=== PATIENT | male | born 1940 ===

== ENCOUNTER 2022-04-11 10:37 | Outpatient (CLI) | payer MEDICARE, SELFPAY ==
--- NOTE | ~2022-04-11 | XR_ITS ---
XR foot RT standing 2V DATE: 04/11/2022 11:24 INDICATION: Multiple joint pain. History of arthritis. TECHNIQUE: Standing AP and lateral views COMPARISON: None FINDINGS: No fracture, dislocation, periosteal reaction or bone destruction. Joint spaces are relativ rickie preserved. No erosive changes. IMPRESSION: No significant abnormality Reviewed, dictated and finalized at location A. IMPRESSION: No significant abnormality
--- NOTE | ~2022-04-11 | XR_ITS ---
EXAMINATION: XR hand BI arthritis min 3V DATE: 04/11/2022 11:24 INDICATION: Osteoarthritis. Multiple joint pain. TECHNIQUE: 4 views of right hand and 4 views of left hand on a total of 7 radiographs were obtained. COMPARISON: None. FINDINGS: RIGHT HAND: Bone alignment is normal. No fracture. There is moderate osteoarthritis of triscaphe join t and first carpometacarpal joint. There is severe osteoarthritis of first metacarpophalangeal joint, moderate osteoarthritis of second and third metacarpophalangeal joints, and mild osteoarthritis of f ourth metacarpophalangeal joint. There is osteoarthritis of all of the interphalangeal joints, severe at second and third proximal and distal interphalangeal joints, fourth proximal interphalangeal join t, and fifth proximal interphalangeal joint. LEFT HAND: Bone alignment is normal. No fracture. There is mild osteoarthritis of triscaphe joint and moderate osteoarthritis of first carpometacarpal joint. There is moderate osteoarthritis of first-th ird metacarpophalangeal joints. There is moderate osteoarthritis of first interphalangeal joint, seco nd and third proximal and distal interphalangeal joints, and fourth proximal interphalangeal joint an d mild osteoarthritis of most of the other interphalangeal joints. IMPRESSION: 1. Polyarticular osteoarthritis. Reviewed, dictated and finalized at location A.
--- NOTE | ~2022-04-11 | XR_ITS ---
EXAMINATION: XR foot LT standing 2V DATE: 04/11/2022 11:23 INDICATION: Osteoarthritis. Multiple joint pain. TECHNIQUE: 2 views of left foot standing were obtained. COMPARISON: None. FINDINGS: Bone alignment is normal. No fracture. There is mild osteoarthritis of first metatarsophala ngeal joint and some of the midfoot joints and interphalangeal joints. There are enthesophytes at the posterior and plantar aspects of calcaneal tuberosity. IMPRESSION: 1. Mild polyarticular osteoarthritis. Reviewed, dictated and finalized at location A.
--- NOTE | ~2022-04-11 | XR_ITS ---
XR hip BI 2V w AP pelvis DATE: 04/11/2022 11:24 INDICATION: Multiple joint pain. History of arthritis. TECHNIQUE: AP pelvis. AP and lateral views of each at COMPARISON: None FINDINGS: No pelvic fracture or bone destruction is evident. The pubic symphysis and sacroiliac joint s are intact. 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
[2022-04-11 11:53] LABS: Hematocrit 40.6 % (42.0-52.0); Hemoglobin 12.8 g/dL (14.0-18.0); Mean Corpuscular HGB Conc 31.5 g/dl (32-36); Mean Corpuscular Hemoglobin 25.9 pg (26-34); Mean Platelet Volume 9.2 fl (7.4-10.4); Platelet Count Result 282 k/mm3 (150-375); Red Blood Count 4.95 M/mm3 (4.6-6.20); Red Cell Distribution Width 15.7 % (11.5-14.5); White Blood Count 7.1 K/mm3 (4.5-10.0)
[2022-04-11 12:09] LABS: Rheumatoid Factor < 8.6 IU/ML (<12)
[2022-04-11 12:17] LABS: Alanine Aminotransferase 13 U/L (6-50); Albumin Level 4.1 g/dL (3.5-5.1); Alkaline Phosphatase 69 U/L (38-126); Anion Gap 8 mmol/L (8-16); Aspartate Amino Transferase 21 U/L (17-59); Bilirubin,Total 0.7 mg/dL (0.2-1.3); Blood Urea Nitrogen 22 mg/dL (9-20); CRP 5.5 mg/dL (<1.0); Carbon Dioxide 26 mmol/L (22-30); Chloride 102 mmol/L (98-107); Estimated Glomerular Filt Rate 48; Glucose 93 mg/dL (65-110); Potassium 4.5 mmol/L (3.4-5.0); Sodium 136 mmol/L (137-145); Uric Acid 5.6 mg/dL (3.5-8.5)
[2022-04-11 12:57] LABS: Erythrocyte Sedimentation Rate 32 mm/hr (0-20)
[2022-04-16 08:22] LABS: Anti Cyclic Citrullinated Pept <16 Units (<20)
== END 2022-04-11 10:38 | disposition home or self-care (01) ==
PROVIDERS: PCP Internal Medicine; Visit Provider Internal Medicine
DX: M19.90 Unspecified osteoarthritis, unspecified site (principal); R70.0 Elevated erythrocyte sedimentation rate; M16.0 Bilateral primary osteoarthritis of hip; M19.042 Primary osteoarthritis, left hand; M19.041 Primary osteoarthritis, right hand
CPT/HCPCS: 36415; 73130; 73521; 73620; 80053; 84550; 85027; 85652; 86038; 86140; 86200; 86430